=== PATIENT | female | born 1950 | race Caucasian/White ===

== ENCOUNTER 2024-09-09 09:13 | Outpatient (OUT) | payer MEDICARE, OTHER, SELFPAY | END 2024-09-09 09:14 | disposition home or self-care (01) | LOC: US 09:18 | PROVIDERS: PCP Internal Medicine; Visit Provider Internal Medicine | DX: R41.3 Other amnesia (principal); R09.89 Other specified symptoms and signs involving the circulatory and respiratory systems | CPT/HCPCS: 93880 ==